=== PATIENT | male | born 1990 | race Caucasian/White ===

== ENCOUNTER 2016-07-17 12:39 | Emergency (ER) | payer OTHER ==
[~2016-07-17] VITALS: Ht 175.3 cm; Wt 72.6 kg
--- OUTSIDE RECORDS SUMMARY | 2016-07-17 12:47 | XMS REPORT ---
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 Medications Active Name Start Date Estimated Completion Date SIG Comments Huddy 5-325 mg oral tablet 11/12/2015 take 1 tablet by oral route every 6 hours as needed for pain Name Start Date Expiration Date SIG Comments Celexa 20 mg oral tablet 09/16/2009 01/14/2010 take 1 tablet (20 mg) by oral route daily for 30 days Zithromax Z-Tomas 250 mg oral tablet 10/31/2009 11/05/2009 take 2 tablets (500 mg ) by oral route once daily for 1 day then 1 tablet (250 mg) by oral route once daily for 4 days Discontinued Name Start Date Discontinued Date SIG Comments Vicodin 5-500 mg oral tablet 10/09/2010 03/15/2012 take 1 tablet by oral route every 6 hours as needed for pain Problem List Description Status Onset Asthma Active Vital Signs Date Time BP-Sys(mm[Hg] BP-Beata(mm[Hg]) HR(bpm) RR(rpm) Temp WT HT HC BMI BSA BMI Percentile O2 Sat(%) 11/13/2015 3:00:00 PM 130 mmHg 72 mmHg 96 bpm 16 rpm 98.2 F 147 lbs 69 in 21.71 kg/m2 1.80 m2 98 % 12/25/2014 1:57:00 PM 120 mmHg 70 mmHg 84 bpm 18 rpm 98.4 F 152 lbs 69 in 22.4462 kg/m 1.8321 m 99 % 11/16/2012 9:16:00 AM 110 mmHg 60 mmHg 68 bpm 14 rpm 95.2 F 153 lbs 68 in 23.26 kg/m2 1.82 m2 99 % 06/21/2012 10:45:00 AM 122 mmHg 60 mmHg 90 bpm 20 rpm 96.7 F 158.375 lbs 68 in 24.0806 kg/m 1.8565 m 98 % 06/02/2012 11:32:00 AM 122 mmHg 62 mmHg 80 bpm 18 rpm 98.2 F 157 lbs 68 in 23.87 kg/m2 1.85 m2 100 % 03/15/2012 10:49:00 AM 112 mmHg 60 mmHg 64 bpm 16 rpm 97.2 F 152 lbs 68 in 23.1113 kg/m 1.8188 m 100 % 04/23/2011 10:55:00 AM 104 mmHg 68 mmHg 72 bpm 153 lbs 68 in 23.26 kg/m2 1.82 m2 53.8 % 02/03/2011 10:51:00 AM 108 mmHg 72 mmHg 80 bpm 152 lbs 68 in 23.1113 kg/m 1.8188 m 53.4 % 12/10/2010 11:15:00 AM 114 mmHg 66 mmHg 72 bpm 151 lbs 11/03/2010 2:45:00 PM 104 mmHg 60 mmHg 72 bpm 159 lbs 10/09/2010 2:09:00 PM 112 mmHg 60 mmHg 60 bpm 158 lbs 11/22/2009 9:31:00 AM 102 mmHg 60 mmHg 64 bpm 159 lbs 10/31/2009 9:31:00 AM 98 bpm 100.6 F 166 lbs 99 % 07/19/2009 9:48:00 AM 106 mmHg 68 mmHg 64 bpm 168.562 lbs Social History Name Description Comments Cigarette smoking Alcohol Use Tobacco Current every day smoker History of Procedures Date Ordered Description Order Status 06/02/2012 12:00 AM PMRV Drug Screen Collection Reviewed 11/16/2012 12:00 AM THER/PROPH/DIAG INJ SC/IM Reviewed 11/16/2012 12:00 AM Decadron, Per 1 Mg [facility] [place] 2]# [id number] Reviewed 11/16/2012 12:00 AM Depo-Medrol, Per 80 Mg [facility] [place]NOTE 2]#[id number] Reviewed 10/31/2009 12:00 AM THER/PROPH/DIAG INJ SC/IM Reviewed 10/31/2009 12:00 AM Decadron Inj.8mg-([facility]) [facility] [place] #[id number] Reviewed 10/31/2009 12:00 AM Depo-Medrol 80 Mg Im/[facility] [place]NOTE 2] [id number] Reviewed 10/31/2009 12:00 AM Rocephin, Per 250MG - 1 Gram Vial Reviewed 12/10/2010 12:00 AM Urine drug screen Reviewed 12/25/2014 12:00 AM THER/PROPH/DIAG INJ SC/IM Reviewed Results Summary Not available. History Of Immunizations Not available. History of Past Illness Name Date of Onset Comments Diplopia Jul 19 2009 9:50AM Contusion of orbital tissues Jul 19 2009 9:50AM Asthma Tonsillitis, Acute Oct 31 2009 9:32AM Tonsillitis, Acute Nov 22 2009 9:32AM Follow-Up Examination Nov 22 2009 9:32AM Dental abscess Oct 09 2010 2:09PM Sprain/Strain Nov 03 2010 2:44PM Leg Pain, right thigh Nov 03 2010 2:44PM General Medical Exam, Adult Dec 10 2010 11:14AM General Medical Exam, Adult Feb 03 2011 10:49AM General Medical Exam, Adult Apr 23 2011 10:52AM General Medical Exam, Adult Mar 15 2012 10:50AM General Medical Exam, Adult Jun 02 2012 11:33AM Viral Syndrome Jun 21 2012 10:45AM Viral Syndrome Nov 16 2012 9:16AM Labyrinthitis Nov 16 2012 9:16AM Gastroenteritis, Viral Dec 25 2014 1:57PM Nausea Dec 25 2014 1:57PM Severe Acute Toe joint pain, left Nov 13 2015 3:02PM Payers Insurance Name Company Name Plan Name Plan Number Policy Number Policy Group Number Start Date [facility] [id number] N/A [employer] doi 5-10-16 N/A [facility] [id number] N/A [employer] [facility] [id number] N/A [employer] [id number] N/A [facility] PMRV PHYS/DS PMRV PHYS DS N/A [place] [employer] [facility] Medical Assistance Prog [id number] Thursday, 2010 [facility] [id number] N/A [facility] PRE EMPLOYMENT PHYSICAL N/A [facility] [id number] N/A [facility] PMRV PHYS/DS PMRV PHYS DS N/A History of Encounters Visit Date Visit Type Provider 11/12/2015 Office visit WILLAM COOK 12/25/2014 Office visit 12/25/2014 Office visit WILLAM COOK 11/16/2012 Office visit WILLAM COOK 06/21/2012 Office visit WILLAM COOK 06/02/2012 Office visit WILLAM COOK 03/15/2012 Office visit WILLAM COOK 04/23/2011 Office visit Willam Martin PA-C 02/03/2011 Office visit Willam Martin PA-C 12/10/2010 Office visit Willam COOK-C 11/03/2010 Office visit Willam Martin PA-C 10/09/2010 Office visit Willam Martin PA-C 11/22/2009 Office visit Willam Martin PA-C 10/31/2009 Office visit Willam Martin PA-C 07/19/2009 Office visit Willam Martin PA-C 02/27/2009 Office visit WILLAM COOK
[2016-07-17] MEDS ORDERED: SULF1TAB35 PO (13:02)
[2016-07-17] MEDS ORDERED: MUPI22OI2 TP (13:02)
--- NOTE | 2016-07-17 13:02 | ED Integumentary General ---
General Chief Complaint: Skin/Wound Problems Stated Complaint: GROWTH ON CHIN Source: patient Exam Limitations: no limitations History of Present Illness Time seen by provider: 12:59 Initial Comments To ER with reports of a lesion to the left chin. This is been present for about 3 weeks and it started as a pimple. It now has honey-colored crust to it. He has 2 smaller bumps that are tender beneath his jawline. No fevers. No known injury. Timing/Duration: other Severity: moderate Associated Symptoms: denies symptoms Allergies and Home Medications Allergies Coded Allergies: No Known Drug Allergies (Unverified , 03/24/13) Constitutional: see HPI EENTM: see HPI Respiratory: no symptoms reported Cardiovascular: no symptoms reported Genitourinary: no symptoms reported Musculoskeletal: no symptoms reported Skin: no symptoms reported Psychiatric/Neurological: No Symptoms Reported Endocrine: No Symptoms Reported Hematologic/Lymphatic: No Symptoms Reported Past Inlqikw-Yqpqvg-Gshaxv Hx Patient Social History Alcohol Use: Denies Use Recreational Drug Use: No Smoking Status: Current Everyday Smoker Recent Foreign Travel: No Contact w/Someone Who Travel: No Recent Hopitalizations: No Physical Abuse Screen: No Sexual Abuse: No Seasonal Allergies Seasonal Allergies: No Surgeries HX Surgeries: Yes (hand surgery) Respiratory Hx Respiratory Disorders: No Cardiovascular Hx Cardiac Disorders: Yes Neurological Hx Neurological Disorders: No Genitourinary Hx Genitourinary Disorders: No Gastrointestinal Hx Gastrointestinal Disorders: No Musculoskeletal Hx Musculoskeletal Disorders: No Endocrine Hx Endocrine Disorders: No Psychosocial Hx Psychiatric Problems: Yes Behavioral Health Disorders: Depression Physical Exam Vital Signs Capillary Refill : General Appearance: WD/WN no apparent distress HEENT: PERRL/EOMI normal ENT inspection other (there is a 1.5 cm area of erythema and honey-colored crust to the left lower chin consistent with impetigo. There are 2 mobile tender 1 cm nodules in the submental region consistent with a reactive submental lymphadenopathy) Neck: No lymphadenopathy (R), No lymphadenopathy (L) Respiratory: no respiratory distress no accessory muscle use Neurologic/Psychiatric: alert normal mood/affect oriented x 3 Skin: normal color warm/dry Departure Impression Impression: Primary Impression: Impetigo Additional Impression: Reactive lymphadenopathy Disposition: 01 HOME, SELF-CARE Condition: Stable Departure-Patient Inst. Decision time for Depature: 13:00 Referrals: IRAIS BUCHANAN (PCP/Family) Primary Care Physician Patient Instructions: Impetigo, Wound Care (DC) Add. Discharge Instructions: 1. Warm compress to the chin 2. Antibiotics as directed 3. Follow-up with your doctor if no improvement in 1-2 weeks. All discharge instructions reviewed with patient and/or family. Voiced understanding. Scripts Mupirocin 22 Gm Oint...g.1 Gm TP BID #1 TUBE Twice a day for 7 days Prov:SARAH URIARTE APRN 07/17/16 Sulfamethoxazole/Trimethoprim (Bactrim Ds Tablet)1 Each Tablet1 Each PO BID #14 TAB Prov:SARAH URIARTE APRN 07/17/16 SARAH URIARTE APRN Jul 17, 2016 13:02
[2016-07-17 13:07] VITALS: BP 124/74
== END 2016-07-17 13:07 | disposition home or self-care (01) ==
LOC: EDUNIT# 12:39 → ER 12:42
DX: L01.00 Impetigo, unspecified (principal); R59.0 Localized enlarged lymph nodes
CPT/HCPCS: 87070; 87205; 99283